=== PATIENT | male | born 1955 | race Caucasian/White ===

== ENCOUNTER 2023-02-06 08:33 | Day surgery (SDC) | payer MEDICARE ==
[2023-02-06] MEDS ORDERED: Sodium Chloride 0.9% 1,000 ML IV SCH (09:30)
[2023-02-06] MEDS ORDERED: Midazolam 1 MG/ML 2 ML SDV ONE (10:36)
[2023-02-06] MEDS ORDERED: fentaNYL 50 MCG/ML SDV ONE (10:36)
[2023-02-06] MEDS ORDERED: Propofol 200 MG/20 ML SDV ONE (10:36)
== END 2023-02-06 12:35 | disposition home or self-care (01) ==
LOC: JP.SDS 08:33
PROVIDERS: ATTEND Surgery
DX: Z12.11 Encounter for screening for malignant neoplasm of colon (principal); E78.5 Hyperlipidemia, unspecified
CPT/HCPCS: G0121; J2250; J2704; J3010; J7030

== ENCOUNTER 2023-09-01 10:14 | Emergency (ER) | payer MEDICARE | END 2023-09-01 11:21 | disposition home or self-care (01) | LOC: JP.ED 10:14 | DX: S89.92XA Unspecified injury of left lower leg, initial encounter (principal); K21.9 Gastro-esophageal reflux disease without esophagitis; E66.9 Obesity, unspecified; Z68.31 Body mass index [BMI] 31.0-31.9, adult; Z79.82 Long term (current) use of aspirin; Z79.899 Other long term (current) drug therapy; X50.1XXA Overexertion from prolonged static or awkward postures, initial encounter | CPT/HCPCS: 73562-LT; 99283 ==